=== PATIENT | male | born 1985 | race Caucasian/White ===

== ENCOUNTER 2016-11-01 15:51 | Emergency (ER) | payer MEDICAID, OTHER ==
[~2016-11-01] VITALS: Ht 177.8 cm; Wt 81.6 kg
--- NOTE | 2016-11-01 16:13 | Emergency Room Report ---
History of Present Illness General Chief Complaint: Medical Clearance Source: Patient Present Illness HPI 31-year-old male presents emergency department for medical clearance patient denies symptoms at this time he denies past medical history. Patient admits to substance use and states that he used crystal meth and heroin at 4 AM this morning.. he denies taking medications daily. Denies fevers, chills, abdominal pain, rashes, CP, Palpitations, LOC, AMS, dizziness, Changes in Vision, Sensation, paresthesias, or a sudden severe headache. Does not know when his last tetanus vaccination was. Allergies: Coded Allergies: No Known Allergies (Unverified , 11/01/16) Patient History Past Medical History: see triage record Past Surgical History: none Pertinent Family History: none Reviewed Nursing Documentation: PMH: Agreed, PSxH: Agreed Nursing Documentation-PMH Past Medical History: No Stated History Review of Systems All Other Systems: negative except mentioned in HPI Physical Exam Vital Signs Date Time Temp Pulse Resp B/P Pulse Ox O2 Delivery O2 Flow Rate FiO2 11/01/16 16:01 97.3 73 20 124/77 100 Room Air Sp02 EP Interpretation: reviewed, normal General Appearance: no apparent distress, alert, GCS 15, non-toxic Head: normocephalic, atraumatic Eyes: bilateral eye PERRL, bilateral eye normal inspection ENT: hearing grossly normal, normal pharynx, no angioedema, normal voice Neck: full range of motion, supple/symm/no masses Respiratory: lungs clear, normal breath sounds, speaking full sentences Cardiovascular #1: regular rate, rhythm, no edema, normal capillary refill Gastrointestinal: normal bowel sounds, non tender, soft, no guarding, no rebound Rectal: deferred Musculoskeletal: back normal, gait/station normal, normal range of motion, non- tender Neurologic: alert, oriented x3, responsive, motor strength/tone normal, sensory intact, speech normal Psychiatric: judgement/insight normal, memory normal, mood/affect normal Skin: normal color, no rash, warm/dry, well hydrated, other - erythema and increased temperature to palpation about small abrasion (1cm) on the left hand at the base of the thumb. Medical Decision Making PA Attestation Dr. Patrick is my supervising Physician whom patient management has been discussed with. Diagnostic Impression: Primary Impression: Medical clearance for incarceration Additional Impressions: Cellulitis Qualified Codes: L03.114 - Cellulitis of left upper limb Substance use disorder ER Course 31-year-old male presents emergency department for medical clearance patient denies symptoms at this time he denies past medical history. Patient admits to substance use and states that he used crystal meth and heroin at 4 AM this morning.. he denies taking medications daily. Denies fevers, chills, abdominal pain, rashes, CP, Palpitations, LOC, AMS, dizziness, Changes in Vision, Sensation, paresthesias, or a sudden severe headache. Does not know when his last tetanus vaccination was. Ddx considered but are not limited to Head Trauma, GA, ACS, SI/HI, URI, SAH, Fractures, Dislocations, Tazer barbs, Abrasions, cellulitis Vital signs: are WNL, pt. is afebrile H&PE are most consistent with: superficial cellulitis about small abrasion on the left hand at the base of the thumb. ORDERS: none required at this time, the diagnosis is clinical ED INTERVENTIONS: -Tetanus vaccination is administered. DISCHARGE: At this time pt. is stable for d/c to law enforcement. Will provide printed patient care instructions, and any necessary prescriptions. Care plan and follow up instructions have been discussed with the patient prior to discharge. Last Vital Signs Date Time Temp Pulse Resp B/P Pulse Ox O2 Delivery O2 Flow Rate FiO2 11/01/16 16:01 97.3 73 20 124/77 100 Room Air Disposition: D/C TO LAW ENFORCEMENT IN [place] Condition: Stable Scripts Trimethoprim/Sulfamethoxazole 160/800* (BACTRIM DS TABLET*) 1 Each Tablet 1 TAB ORAL TWICE A DAY for 7 Days, #14 TAB Prov: Lorena Olsen 11/01/16 Cephalexin* (KEFLEX*) 500 Mg Capsule 500 MG ORAL EVERY 12 HOURS for 7 Days, #14 CAP 0 Refills Prov: Lorena Olsen 11/01/16 Departure Forms: Custodial Clearance Patient Instructions: Medical Screening Exam Additional Instructions: Take medications as directed. Follow up with PCP in 3-5 days Return sooner to ED if new symptoms occur, or current symptoms become worse. - Please note that this Emergency Department Report was dictated using [employer] supervisor technology software, occasionally this can lead to erroneous entry secondary to interpretation by the dictation equipment. Lorena Olsen Nov 01, 2016 16:13
[2016-11-01 16:23] VITALS: BP 124/77
[2016-11-01] MEDS ORDERED: BACTRIM DS TAB1 EAC1 ORAL (16:29)
[2016-11-01] MEDS ORDERED: CEPHALEXIN500 MG ORAL (16:29)
[2016-11-01] MEDS ORDERED: Tetanus/Diptheria/Pertussis Vaccine 0.5ml Syr IM ONE ×2 (16:29→16:30)
[2016-11-01 16:59] VITALS: BP 124/77
== END 2016-11-01 17:00 ==
LOC: EMR 16:18
DX: F15.10 Other stimulant abuse, uncomplicated (principal); Z23 Encounter for immunization; L03.114 Cellulitis of left upper limb; Z02.89 Encounter for other administrative examinations
CPT/HCPCS: 90471; 90715; 96372; 99284